=== PATIENT | female | born 1975 | race Hispanic/Latino ===

== ENCOUNTER → 2016-10-12 | Outpatient (REF) | payer OTHER ==
[2016-10-12 19:50] LABS: BASO % 0.4 % (0.0-1.0); EOS # 0.1 K/mm3 (0.0-0.50); EOS % 0.9 % (0.0-3.0); LARGE UNSTAINED CELL # 0.1 K/mm3 (0.0-0.4); LARGE UNSTAINED CELL % 1.1 % (0.0-4.0); LYMPH # 2.6 K/mm3 (1.5-4.5); LYMPH % 28.5 % (24.0-44.0); MEAN CORPUSCULAR HEMOGLOBIN 30.9 pg (27.0-33.0); MEAN CORPUSCULAR HGB CONC 31.7 g/dl (32.0-36.5); MEAN CORPUSCULAR VOLUME 97.4 fl (80.0-96.0); MONO # 0.4 K/mm3 (0.0-0.8); MONO % 4.4 % (0.0-5.0); NEUTROPHILS # 5.7 K/mm3 (1.8-7.7); NEUTROPHILS % 64.7 % (36.0-66.0); PLATELET COUNT, AUTOMATED 289 k/mm3 (150-450); RED CELL DISTRIBUTION WIDTH 12.8 % (11.5-14.5); WHITE BLOOD COUNT 8.8 K/mm3 (4.0-10.0)
[2016-10-12 20:02] LABS: FOLATE 10.2 NG/ML (>5.4); VITAMIN B12 LEVEL 322 PG/ML (247-911)
[2016-10-12 20:19] LABS: ALBUMIN 3.7 GM/DL (3.2-5.2); ALBUMIN/GLOBULIN RATIO 0.97 (1.00-1.93); ALKALINE PHOSPHATASE 77 U/L (45-117); ALT/SGPT 23 U/L (12-78); ANION GAP 9 MEQ/L (8-16); AST/SGOT 14 U/L (15-37); BILIRUBIN,TOTAL 0.2 MG/DL (0.2-1.0); BLOOD UREA NITROGEN 14 MG/DL (7-18); CARBON DIOXIDE LEVEL 22 MEQ/L (21-32); CHLORIDE LEVEL 107 MEQ/L (98-107); FREE T4 0.75 NG/DL (0.76-1.46); GLOMERULAR FILTRATION RATE > 60.0 (>58); GLUCOSE, FASTING 101 MG/DL (70-105); POTASSIUM SERUM 4.1 MEQ/L (3.5-5.1); SODIUM LEVEL 138 MEQ/L (136-145); TOTAL PROTEIN 7.5 GM/DL (6.4-8.2)
== END ==
LOC: M LABNEURO 13:25
PROVIDERS: ATTEND Psychiatry & Neurology Neurology
DX: M54.81 Occipital neuralgia (principal); D35.2 Benign neoplasm of pituitary gland; G43.711 Chronic migraine without aura, intractable, with status migrainosus

== ENCOUNTER 2017-01-29 16:43 | Emergency (ER) | payer OTHER ==
[~2017-01-29] VITALS: Ht 157.5 cm; Wt 77.2 kg
[2017-01-29 16:43] VITALS: BP 123/84
[2017-01-29] MEDS ORDERED: VERAP80TA PO (16:57)
[2017-01-29] MEDS ORDERED: ZOMI5TAB12 PO (16:57)
[2017-01-29] MEDS ORDERED: ZONI50CA PO (16:57)
[2017-01-29] MEDS ORDERED: METF500T13 PO (16:57)
[2017-01-29] MEDS ORDERED: IMIT100T PO (16:57)
[2017-01-29] MEDS ORDERED: [UNRECOGNIZED DRUG - CODE] XX (17:24)
[2017-01-29] MEDS ORDERED: AUGM875T28 PO (17:24)
== END 2017-01-29 17:41 | disposition home or self-care (01) ==
LOC: M ED 16:43
DX: N76.2 Acute vulvitis (principal); E11.9 Type 2 diabetes mellitus without complications; I10 Essential (primary) hypertension

== ENCOUNTER 2017-05-12 11:25 | Emergency (ER) | payer OTHER ==
[~2017-05-12] VITALS: Ht 157.5 cm; Wt 75.0 kg
[~2017-05-12 11:25] MED LIST: AUGM875T28 PO; IMIT100T PO; METF500T13 PO; VERAP80TA PO; ZOMI5TAB12 PO; ZONI50CA PO; [UNRECOGNIZED DRUG - CODE] XX
[2017-05-12 11:33] VITALS: BP 110/69
[2017-05-12] MEDS ORDERED: GENT3OPD OD (12:55)
[2017-05-12] MEDS ORDERED: AUGM875T28 PO (12:55)
== END 2017-05-12 13:01 | disposition home or self-care (01) ==
LOC: M ED 11:25
DX: H10.31 Unspecified acute conjunctivitis, right eye (principal); R59.0 Localized enlarged lymph nodes; E11.9 Type 2 diabetes mellitus without complications; Z79.899 Other long term (current) drug therapy; Z79.84 Long term (current) use of oral hypoglycemic drugs

== ENCOUNTER 2017-05-14 13:07 | Emergency (ER) | payer OTHER ==
[~2017-05-14] VITALS: Ht 157.5 cm; Wt 75.0 kg
[~2017-05-14 13:07] MED LIST changes: +GENT3OPD OD
[2017-05-14] MEDS ORDERED: CLEO300C2 PO (14:24)
[2017-05-14] MEDS ORDERED: ERYTOIN8 OD (14:24)
[2017-05-14 14:30] VITALS: BP 118/78
== END 2017-05-14 14:34 | disposition home or self-care (01) ==
LOC: M ED 13:07
DX: H10.31 Unspecified acute conjunctivitis, right eye (principal); H00.12 Chalazion right lower eyelid; L03.213 Periorbital cellulitis; R73.03 Prediabetes; G43.909 Migraine, unspecified, not intractable, without status migrainosus; Z91.040 Latex allergy status; J30.89 Other allergic rhinitis; Z79.899 Other long term (current) drug therapy; Z79.2 Long term (current) use of antibiotics; Z79.84 Long term (current) use of oral hypoglycemic drugs